=== PATIENT | male | born 1990 | race Caucasian/White ===

== ENCOUNTER 2016-10-31 14:09 | Emergency (ER) | payer SELFPAY ==
[~2016-10-31] VITALS: Ht 177.8 cm; Wt 63.0 kg
[2016-10-31 14:17] VITALS: BP 119/74; PULSE 77; RESP 16; TEMP 99.2; O2SAT 100
--- NOTE | 2016-10-31 14:36 | PD ---
HPI Chief Complaint: Laceration/Skin Injury Time Seen by Provider: 14:23 Travel History International Travel<30 days: No Contact w/Intl Traveler<30days: No Traveled to known affect area: No History of Present Illness HPI 26-year-old male presents to the emergency department status post laceration to the dorsal left thumb from his own jackknife, while attempting to cut a zip tie on an electrical bundle. Patient states his hand slipped and he cut his dorsal left thumb. Patient applied superglue to the area himself as well as a bandage prior to arrival here. Patient denies numbness or weakness in the thumb itself. Pain is minimal. Tetanus is up-to-date. He has no known drug allergies. [facility] Social History Alcohol Use: Yes Tobacco Use: No Substance Use: No Allergies-Medications (Allergen,Severity, Reaction): Coded Allergies: No Known Allergies (Unverified , 10/31/16) Reported Meds & Prescriptions Reported Meds & Active Scripts Active Keflex (Cephalexin) 500 Mg Cap 500 Mg PO Q8H Review of Systems Except as stated in HPI: all other systems reviewed are Neg General / Constitutional: No: Fever Eyes: No: Visual changes HENT: No: Headaches Cardiovascular: No: Chest Pain or Discomfort Respiratory: No: Shortness of Breath Gastrointestinal: No: Abdominal Pain Genitourinary: No: Dysuria Musculoskeletal: No: Pain Skin: No Rash Neurologic: No: Weakness Psychiatric: No: Depression Endocrine: No: Polydipsia Hematologic/Lymphatic: No: Easy Bruising Physical Exam Narrative GENERAL: Patient is in no acute distress. SKIN: Warm and dry. Normal color. Normal turgor. Patient has a well approximated 2 inch laceration to the dorsal left thumb. Bleeding is controlled. HEAD: Atraumatic. Normocephalic. EYES: Pupils equal and round. No scleral icterus. No injection or drainage. ENT: No nasal bleeding or discharge. Mucous membranes pink and moist. NECK: Trachea midline. No JVD. CARDIOVASCULAR: Regular rate and rhythm. RESPIRATORY: No accessory muscle use. Clear to auscultation. Breath sounds equal bilaterally. GASTROINTESTINAL: Abdomen soft, non-tender, nondistended. Hepatic and splenic margins not palpable. MUSCULOSKELETAL: Extremities without clubbing, cyanosis, or edema. No obvious deformities. Left thumb has full range of motion and strength. Capillary refill is brisk distally. Neuro vascular exam is normal. No tendon involvement is suspected. No joint involvement is suspected. NEUROLOGICAL: Awake and alert. No obvious cranial nerve deficits. Motor grossly within normal limits. Five out of 5 muscle strength in the arms and legs. Normal speech. PSYCHIATRIC: Appropriate mood and affect; insight and judgment normal. Data Data Last Documented VS Vital Signs Date Time Temp Pulse Resp B/P Pulse Ox O2 Delivery O2 Flow Rate FiO2 10/31/16 14:17 99.2 77 16 119/74 100 MDM Medical Decision Making Medical Screen Exam Complete: Yes Emergency Medical Condition: Yes Differential Diagnosis Laceration left thumb. Respiratory infection. Need for dressing. Narrative Course Patient is medically stable at time of exam. Repeat closer not necessary, as patient already superglued his thumb and it is working. Area was cleansed with copious amounts of Betadine, and Xeroform gauze and bulky bandage was placed. Further closure was not felt necessary based on the patient's exam. Dressing should be clean and dry and in place for at least 4 days. Patient is given Keflex 500 mg 3 times a day for 7 days. Patient follow-up with any worsening symptoms or signs of infection develop. Diagnosis Primary Impression: Laceration of left thumb without complication Qualified Code: S61.012A - Laceration of left thumb without complication, initial encounter Patient Instructions: Finger Laceration (ED), General Instructions Additional Instructions: Dressing should kept be clean and dry and in place for at least 4 days. Patient is given Keflex 500 mg 3 times a day for 7 days. Patient follow-up with any worsening symptoms or signs of infection develop. Med/Other Pt SpecificInfo: Prescription(s) given, Wound Care Scripts Cephalexin (Keflex)500 Mg [id number] Mg PO Q8H #21 CAP Prov:Joanna Donohue MD 10/31/16 Disposition: 01 DISCHARGE HOME Condition: Stable Zaire Vargas Oct 31, 2016 14:36
[2016-10-31] MEDS ORDERED: CEPH-460 PO (14:37)
== END 2016-10-31 15:04 | disposition home or self-care (01) ==
LOC: PHEFT 14:09
DX: S61.012A Laceration without foreign body of left thumb without damage to nail, initial encounter (principal); W26.0XXA Contact with knife, initial encounter; Y93.9 Activity, unspecified; Y92.89 Other specified places as the place of occurrence of the external cause; Y99.8 Other external cause status
CPT/HCPCS: 99282